=== PATIENT | female | born 1975 | race American Indian/Alaskan Native ===

== ENCOUNTER 2018-10-24 12:46 | Outpatient (CLI) | payer OTHER ==
[~2018-10-24 12:46] MED LIST: INTERFERON PO; LEXAPRO20 MG PO
== END 2018-10-24 12:48 | disposition home or self-care (01) ==
LOC: LAB 12:46
DX: J11.1 Influenza due to unidentified influenza virus with other respiratory manifestations (principal); B34.9 Viral infection, unspecified

== ENCOUNTER 2018-12-14 06:05 | Day surgery (SDC) | payer OTHER | END 2018-12-14 10:25 | disposition home or self-care (01) | LOC: CIR.AMB 06:05 | DX: N84.0 Polyp of corpus uteri (principal) ==

== ENCOUNTER 2023-04-19 09:20 | Emergency (ER) | payer OTHER ==
[~2023-04-19] VITALS: Ht 162.6 cm; Wt 68.0 kg
[2023-04-19] MEDS ORDERED: PLEGRIDY P125 MCG/0. (09:37)
[2023-04-19 10:43] LABS: HEMATOCRIT 35.4 % (36.0-45.00); HEMOGLOBIN 12.1 g/dL (12.0-15.00); MEAN CELL VOLUME 88.3 fL (80.00-100.00); MEAN CORPUSCULAR HEMOGLOBIN 30.2 pg (27.00-32.0); MEAN CORPUSCULAR HGB CONC 34.2 g/dl (32.0-36.0); PLATELET COUNT 144 K/uL (150-450); RED BLOOD COUNT 4.01 M/uL (4.00-6.00); RED CELL DISTRIBUTION WIDTH 13.3 % (11.5-14.5)
== END 2023-04-19 12:36 | disposition home or self-care (01) ==
LOC: ER 09:20
PROVIDERS: Emergency Medicine
DX: N93.9 Abnormal uterine and vaginal bleeding, unspecified (principal); Q51.810 Arcuate uterus; Z88.6 Allergy status to analgesic agent; Z88.0 Allergy status to penicillin; Z91.013 Allergy to seafood; Z88.8 Allergy status to other drugs, medicaments and biological substances; Z91.018 Allergy to other foods

== ENCOUNTER 2023-04-20 09:57 | Outpatient (CLI) | payer OTHER ==
[~2023-04-20 09:57] MED LIST changes: +PLEGRIDY P125 MCG/0.
== END 2023-04-20 10:11 | disposition home or self-care (01) ==
LOC: MAMO-SONO 09:57
PROVIDERS: ATTEND Obstetrics & Gynecology Maternal & Fetal Medicine
DX: Z12.31 Encounter for screening mammogram for malignant neoplasm of breast (principal); N63.0 Unspecified lump in unspecified breast; N64.4 Mastodynia; N60.11 Diffuse cystic mastopathy of right breast